=== PATIENT | male | born 1995 | race Caucasian/White ===

== ENCOUNTER 2017-11-22 04:39 | Emergency (ER) | payer OTHER ==
[~2017-11-22] VITALS: Ht 170.2 cm; Wt 59.0 kg
[~2017-11-22 04:39] MED LIST: ADVIL200 MG PO; AUGMENTIN 875 M1 TAB PO; IBUPROFEN800 MG PO
[2017-11-22] MEDS ORDERED: PANTOPRAZOLE SO40 M1 PO (04:56)
--- NOTE | 2017-11-22 05:00 | ED GI/GU/ABDOMINAL COMPLAINT ---
History of Present Illness General Chief Complaint: General Adult Stated Complaint: "ABD PAIN,CONGESTION,+N+V+D [id number]" Source: patient, old records, friend Exam Limitations: no limitations Vital Signs & Intake/Output Vital Signs & Intake/Output Vital Signs Date Time Temp Pulse Resp B/P B/P Pulse O2 O2 Flow FiO2 Mean Ox Delivery Rate 11/22 0610 98.1 80 18 119/64 97 Room Air 11/22 0455 Room Air 11/22 0449 97.9 71 18 113/71 98 Room Air Allergies Coded Allergies: NO KNOWN ALLERGIES (07/08/12) Reconcile Medications Pantoprazole Sodium 40 MG TABLET. 1 TAB PO DAILY GERD (Reported) Triage Note: PT TO TRIAGE C/O MID ABD PAIN X1 MONTH WITH N/V. PT STATES WAS DX WITH GERD 1MONTH AGO AND PUT ON MEDICATION FROM PCP. PT ALSO REFERRED TO GI AND HAS APPT THIS AFTERNOON. PT REPORTS PAIN GETS SO BAD, BECOMES NAUSEOUS AND THEN VOMITS. LAST BM YESTERDAY AND NORMAL PER PT. Triage Nurses Notes Reviewed? yes Onset: 1 month Duration: week(s):, continues in ED, getting worse, waxing and waning Timing: recent history Quality/Severity: cramping, moderate, vomiting Location: periumbilical Radiation: no radiation Activities at Onset: none Prior Abdominal Problems: similar symptoms Past Sexual History: Unobtainable at this time Associated Symptoms: abdominal pain, loss of appetite, nausea/vomiting HPI: 1 month prior to admission patient complains of periumbilical abdominal pain described as achy moderate to severe worse upon arising and after eating associated with nausea vomiting weight loss. His PMD prescribed Protonix. Outpatient right upper quadrant ultrasound was reportedly negative for gallstones cholecystitis. He denies fever chills chest pain cough shortness of breath headache dysuria rash bleeding. He has appointment with GI today. Past History Travel History Traveled to [place] past 21 day No Medical History Any Pertinent Medical History? see below for history Neurological: NONE EENT: STREP PHARYNGITIS Cardiovascular: NONE Respiratory: NONE Gastrointestinal: GERD Hepatic: NONE Renal: NONE Musculoskeletal: NONE Psychiatric: NONE Endocrine: NONE Blood Disorders: NONE Cancer(s): NONE CLAIMS CUSTOMER SERVICE REPRESENTATIVE/Reproductive: NONE Surgical History Surgical History: NONE Psychosocial History What is your primary language Slovenian Tobacco Use: Never used ETOH Use: denies use Family History Hx Contributory? No Review of Systems Review of Systems Constitutional: Reports: no symptoms. EENTM: Reports: no symptoms. Respiratory: Reports: no symptoms. Cardiovascular: Reports: no symptoms. GI: Reports: see HPI, abdominal pain, nausea, vomiting. Genitourinary: Reports: no symptoms. Musculoskeletal: Reports: no symptoms. Skin: Reports: no symptoms. Neurological/Psychological: Reports: no symptoms. Hematologic/Endocrine: Reports: no symptoms. Immunologic/Allergic: Reports: no symptoms. All Other Systems: Reviewed and Negative Physical Exam Physical Exam General Appearance: well developed/nourished, alert, awake, anxious, mild distress Head: atraumatic, normal appearance Eyes: Bilateral: normal appearance, PERRL, EOMI, normal inspection. Ears, Nose, Throat, Mouth: hearing grossly normal, moist mucous membrane Neck: normal inspection, supple, full range of motion, normal alignment Respiratory: normal breath sounds, chest non-tender, no respiratory distress, quiet respiration, lungs clear Cardiovascular: regular rate/rhythm, normal peripheral pulses, norml femoral pulses equa Peripheral Pulses: 4+ carotid (R), 4+ carotid (L) Gastrointestinal: normal bowel sounds, soft, non-tender, no organomegaly Male Genitals: normal genitalia Back: normal inspection, normal range of motion, no vertebral tenderness Extremities: normal range of motion, no ligament instability Neurologic/Psych: no motor/sensory deficits, awake, alert, oriented x 3, normal gait, 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 No Sepsis Present: No Sepsis Focused Exam Completed? No Progress Differential Diagnosis: biliary colic, gastritis, pancreatitis, PUD/GERD Plan of Care: Orders Procedure Date/time Status MAGNESIUM 11/22 457 Complete LIPASE 11/22 457 Complete COMPREHENSIVE METABOLIC PANEL 11/22 457 Complete CBC WITHOUT DIFFERENTIAL 11/22 457 Complete Laboratory Tests 11/22/17 0513: Anion Gap 15, Estimated GFR > 60, BUN/Creatinine Ratio 16.3, Glucose 98, Calcium 10.1, Magnesium 2.0, Total Bilirubin 0.6, AST 23, ALT 24, Alkaline Phosphatase 69, Total Protein 8.1, Albumin 4.7, Globulin 3.4, Albumin/Globulin Ratio 1.4, Lipase 68, CBC w Diff NO MAN DIFF REQ, RBC 5.45, MCV 88.1, MCH 28.5, RDW 14.6 H , MPV 9.7, Gran % 39.4 L, Lymphocytes % 47.6, Monocytes % 8.7, Eosinophils % 3.9, Basophils % 0.4, Absolute Granulocytes 2.5, Absolute Lymphocytes 3.1, Absolute Monocytes 0.6, Absolute Eosinophils 0.2, Absolute Basophils 0, PUBS MCHC 32.3 L Initial ED EKG: none Departure Departure Time of Disposition: 630 Disposition: HOME OR SELF CARE Condition: Stable Clinical Impression Primary Impression: Gastritis and duodenitis Referrals: Patient Has No Primary Care Dr (PCP/Family) Departure Forms: Customer Survey General Discharge Information Prescriptions: Current Visit Scripts Ondansetron (Zofran Odt) 1 TAB SL TID PRN nausea #10 TAB Dicyclomine Hydrochloride (Bentyl) 1 CAP PO TID PRN abdominal pain #30 CAP
[2017-11-22 05:32] LABS: ABSOLUTE BASOPHIL COUNT 0 /CUMM (0.0-0.2); ABSOLUTE EOSINOPHIL COUNT 0.2 /CUMM (0.0-0.7); ABSOLUTE GRANULOCYTE CT 2.5 /CUMM (1.4-6.5); ABSOLUTE LYMPH COUNT 3.1 /CUMM (1.2-3.4); ABSOLUTE MONOCYTE COUNT 0.6 /CUMM (0.10-0.60); BASOPHIL % 0.4 % (0.0-2.0); EOSINOPHIL % 3.9 % (0-5); MEAN CORPUSCULAR HGB 28.5 PG (27.0-31.0); MEAN CORPUSCULAR HGB CONC 32.3 G/DL (33.0-37.0); MEAN CORPUSCULAR VOLUME 88.1 FL (80.0-94.0); MEAN PLATELET VOLUME 9.7 FL (7.4-10.4); PLATELET COUNT 246 /CUMM (130-400); RBC DISTRIBUTION WIDTH 14.6 % (11.5-14.5); RED BLOOD CELL CT 5.45 /CUMM (4.70-6.10); WHITE BLOOD CELL COUNT 6.4 /CUMM (4.8-10.8)
[2017-11-22 05:42] LABS: GRANULOCYTE % 39.4 % (42.2-75.2)
[2017-11-22 06:10] VITALS: BP 119/64
[2017-11-22] MEDS ORDERED: BENTYL10 M1 PO (06:33)
[2017-11-22] MEDS ORDERED: ZOFRAN ODT4 M1 SL (06:33)
== END 2017-11-22 06:51 ==
LOC: ERH 04:39
PROVIDERS: Emergency Medicine
DX: K29.70 Gastritis, unspecified, without bleeding (principal); K29.80 Duodenitis without bleeding
CPT/HCPCS: 96361; 96374; 96375; J0131; J2765